=== PATIENT | female | born 1965 | race Caucasian/White ===

== ENCOUNTER 2016-12-07 13:10 | Emergency (ER) | payer BC, OTHER ==
[2016-12-07 13:13] VITALS: BP 143/73; BMI 28.3
[2016-12-07] MEDS ORDERED: ZOFRAN INJ 4 MG VIAL IVP ONE (13:22)
[2016-12-07] MEDS ORDERED: TORADOL 30 MG VIAL IVP ONE (13:22)
[2016-12-07] MEDS ORDERED: NS 1000 ML 1,000 ML IV ONE (13:23)
--- NOTE | 2016-12-07 13:24 | DR.GENAD ---
HPI - PCP Primary Care Physician: ABI - Complaint/Symptoms Chief Complaint:: PT. C/O POSSIBLE KIDNEY STONE, RIGHT FLANK PAIN. - Source History Provided: Patient - Mode of Arrival Mode of Arrival: Ambulatory - Timing Onset of Chief Complaint: 12/07/16 PMH - PMH Past Medical History: Yes Past Medical History: Anxiety, Hypertension, Kidney Stones Past Surgical History: Yes Surgical History: Cholecystectomy, Hysterectomy - Family History History of Family Medical Conditions: Yes Family Medical History: Diabetes Mellitus, Cancer, [place], Coronary Artery Disease, Heart Failure, Hypertension Family Medical History Comment: KIDNEY STONES - Social History Does patient currently use any type of tobacco product: No Have you used tobacco products in the last 12 months: No Type of Tobacco Use: None Does any household member use tobacco: No Alcohol Use: None Do you use any recreational Drugs:: No Lives With: Spouse Lives Where: Home - infectious screening In the last 2 months have you had wt loss of >10#?: NO Have you had fever, night sweats or hemotysis?: No Have you traveled outside the country in the last 6 months?: No Isolation: Standard PE - Vital Signs Vitals: Temperature 98.3 F Pulse Rate 86 Respiratory Rate 17 Blood Pressure 143/73 O2 Sat by Pulse Oximetry 96 ROR - Labs Reviewed Result Diagrams: 12/07/16 13:33 12/07/16 13:33 Laboratory: WBC 6.6 X10^3/uL (3.6-10.0) 12/07/16 13:33 RBC 4.24 X10^6/uL (3.5-5.4) 12/07/16 13:33 Hgb 13.0 g/dL (12.0-16.0) 12/07/16 13:33 Hct 37.9 % (36.0-47.0) 12/07/16 13:33 MCV 89.3 fL (80.0-100.0) 12/07/16 13:33 MCH 30.8 pg (27.0-34.0) 12/07/16 13:33 MCHC 34.4 g/dL (33.0-35.0) 12/07/16 13:33 RDW 12.7 % (11.6-16.5) 12/07/16 13:33 Plt Count 311 X10^3/uL (150.0-450.0) 12/07/16 13:33 MPV 7.9 fL (7.4-11.0) 12/07/16 13:33 Neut % 50.0 % (42.0-75.0) 12/07/16 13:33 Lymph % 36.4 % (21.0-51.0) 12/07/16 13:33 [place] % 11.0 % (0.0-13.0) 12/07/16 13:33 Eos % 1.4 % (0.9-2.9) 12/07/16 13:33 Baso % 1.2 % (0.2-1.0) H 12/07/16 13:33 Neut # 3.3 x10^3/uL (2.2-4.8) 12/07/16 13:33 Lymph # 2.4 X10^3/uL (1.3-2.9) 12/07/16 13:33 [place] # 0.7 x10^3/uL (0.3-0.8) 12/07/16 13:33 Eos # 0.1 x10^3/uL (0.0-0.2) 12/07/16 13:33 Baso # 0.1 X10^3/uL (0.0-0.1) 12/07/16 13:33 Absolute Nucleated RBC 0.0 /100WBC 12/07/16 13:33 Sodium 141 mmol/L (136-145) 12/07/16 13:33 Corrected Sodium TNP 12/07/16 13:33 Potassium 3.5 mmol/L (3.5-5.1) 12/07/16 13:33 Chloride 105 mmol/L (98-107) 12/07/16 13:33 Carbon Dioxide 27.6 mmol/L (21-32) 12/07/16 13:33 BUN 14 mg/dL (7-18) 12/07/16 13:33 Creatinine 0.80 mg/dL (0.55-1.02) 12/07/16 13:33 Est GFR (MDRD) Af Amer > 60 (>60) 12/07/16 13:33 Est GFR (MDRD) Non-Af > 60 (>60) 12/07/16 13:33 Glucose 100 mg/dL (65-99) H 12/07/16 13:33 Calcium 8.9 mg/dL (8.5-10.1) 12/07/16 13:33 Corrected Calcium TNP 12/07/16 13:33 Total Bilirubin 0.30 mg/dL (0.2-1.0) 12/07/16 13:33 AST 23 Units/L (15-37) 12/07/16 13:33 ALT 34 Units/L (12-78) 12/07/16 13:33 Alkaline Phosphatase 58 Units/L (46-116) 12/07/16 13:33 Total Protein 7.4 g/dL (6.4-8.2) 12/07/16 13:33 Albumin 3.9 g/dL (3.4-5.0) 12/07/16 13:33 Globulin 3.5 g/dL (2.5-4.5) 12/07/16 13:33 Albumin/Globulin Ratio 1.1 Ratio (1.1-2.1) 12/07/16 13:33 Specimen Type Clean catch urine 12/07/16 13:33 Urine Color Yellow (YELLOW) 12/07/16 13:33 Urine Appearance Hazy (CLEAR) 12/07/16 13:33 Urine pH 7.0 (5.0 - 8.0) 12/07/16 13:33 Ur Specific [place] 1.010 (1.000-1.030) 12/07/16 13:33 Urine Protein Negative (NEGATIVE) 12/07/16 13:33 Urine Glucose (UA) Negative (NEGATIVE) 12/07/16 13:33 Urine Ketones Negative (NEGATIVE) 12/07/16 13:33 Urine Occult Blood 1+ (NEGATIVE) 12/07/16 13:33 Urine Nitrite Negative (NEGATIVE) 12/07/16 13:33 Urine Bilirubin Negative (NEGATIVE) 12/07/16 13:33 Urine Urobilinogen Normal (NORMAL) 12/07/16 13:33 Ur Leukocyte Esterase Negative (NEGATIVE) 12/07/16 13:33 Urine RBC 3-5 /HPF (NEGATIVE) 12/07/16 13:33 Urine WBC 0-2 /HPF (NEGATIVE) 12/07/16 13:33 Ur Squamous Epith Cells Rare /HPF (NEGATIVE) 12/07/16 13:33 Urine Bacteria Trace /HPF (NEGATIVE) 12/07/16 13:33 Ur Culture Indicated? No/not indicated 12/07/16 13:33 - Diagnosis Discharge Problem: Kidney stone, Right flank pain - Discharge Plan Condition: Stable Prescriptions: Hydrocodone-Acet 5 mg/325 mg [[place] 5/325 mg Tab] 1 tab PO Q6H PRN #20 tab PRN Reason: Pain Ketorolac Tromethamine [Toradol Tab] 10 mg PO Q8H PRN #20 tab PRN Reason: Pain - Follow ups/Referrals Follow ups/Referrals: Chas Baum [Primary Care Provider] - 12/08/16 - Instructions Instructions: Flank Pain, [id number], Kidney Stones, [id number] Additional Instructions: RETURN TO ED IF WORSE.
[2016-12-07] MEDS ORDERED: NS 1000 ML 1,000 ML ONE (13:31)
[2016-12-07] MEDS ORDERED: ZOFRAN INJ 4 MG VIAL ONE (13:31)
[2016-12-07] MEDS ORDERED: TORADOL 30 MG VIAL ONE (13:31)
[2016-12-07 13:47] LABS: BILIRUBIN,URINE NEGATIVE (NEGATIVE); BLOOD/HEMOGLOBIN,URINE 1+ (NEGATIVE); GLUCOSE, URINE NEGATIVE (NEGATIVE); KETONES,URINE NEGATIVE (NEGATIVE); LEUKOCYTE ESTERASE ,URINE NEGATIVE (NEGATIVE); NITRITES,URINE NEGATIVE (NEGATIVE); PROTEIN,URINE NEGATIVE (NEGATIVE); UROBILINOGEN,URINE NORMAL (NORMAL)
[2016-12-07 13:49] LABS: BASOPHILS # (AUTO) 0.1 X10^3/uL (0.0-0.1); BASOPHILS % (AUTO) 1.2 % (0.2-1.0); EOSINOPHILS # (AUTO) 0.1 x10^3/uL (0.0-0.2); EOSINOPHILS % (AUTO) 1.4 % (0.9-2.9); HEMATOCRIT 37.9 % (36.0-47.0); LYMPHOCYTES # (AUTO) 2.4 X10^3/uL (1.3-2.9); LYMPHOCYTES % (AUTO) 36.4 % (21.0-51.0); MEAN CORPUSCULAR HEMOGLOBIN 30.8 pg (27.0-34.0); MEAN CORPUSCULAR HGB CONC 34.4 g/dL (33.0-35.0); MEAN CORPUSCULAR VOLUME 89.3 fL (80.0-100.0); MEAN PLATELET VOLUME 7.9 fL (7.4-11.0); MONOCYTES # (AUTO) 0.7 x10^3/uL (0.3-0.8); NEUTROPHILS # (AUTO) 3.3 x10^3/uL (2.2-4.8); PLATELET COUNT 311 X10^3/uL (150.0-450.0); RED BLOOD COUNT 4.24 X10^6/uL (3.5-5.4); RED CELL DISTRIBUTION WIDTH 12.7 % (11.6-16.5); WHITE BLOOD COUNT 6.6 X10^3/uL (3.6-10.0)
[2016-12-07 13:55] LABS: APPEARANCE,URINE HAZY (CLEAR); BACTERIA,URINE TRACE /HPF (NEGATIVE); COLOR,URINE YELLOW (YELLOW); SQUAMOUS EPITHELIAL CELL,UR RARE /HPF (NEGATIVE)
--- NOTE | 2016-12-07 14:00 | CT ---
HISTORY: Right flank pain Study: CT abdomen pelvis without contrast Comparison: None Technique: Axial non contrast images with coronal and sagittal reformats. Dose reduction procedures were used with MA/kv adjusted for body size. Findings: There is a 3.2 millimeter left lower lobe pulmonary nodule best visualized on series 3, image 15. Fo llow up CT examination in 1 year is recommended for further evaluation. The liver, spleen, adrenal g lands, and pancreas are within normal limits to the limitations of an unenhanced examination. The pa tient is status post cholecystectomy. The kidneys are unobstructed. There is a 1 millimeter nonobstr ucting right lower pole renal calculus and a 1 millimeter nonobstructing right upper pole renal calc ulus. No right ureteral calculi are identified. Multiple tiny nonobstructing left renal calculi are present. No left ureteral calculus is identified. The appendix is normal. No enlarged intraperitonea l or retroperitoneal lymphadenopathy is identified. There are no findings suggestive of diverticulit is or colitis. Examination of the pelvis demonstrated no evidence for pelvic masses, pelvic fluid, o r pelvic lymphadenopathy. No bladder abnormality is identified. No significant skeletal abnormality is identified. IMPRESSION: No evidence for obstructing ureteral calculi. Bilateral tiny multiple nonobstructing renal calculi. Normal appendix 3.2 millimeter left lower lobe pulmonary nodule requiring 1 year follow up to assess for stability Reported By:
[2016-12-07 14:06] LABS: ALANINE AMINOTRANSFERASE 34 Units/L (12-78); ALBUMIN 3.9 g/dL (3.4-5.0); ALKALINE PHOSPHATASE 58 Units/L (46-116); ASPARTATE AMINO TRANSFERASE 23 Units/L (15-37); BLOOD UREA NITROGEN 14 mg/dL (7-18); CALCIUM 8.9 mg/dL (8.5-10.1); CARBON DIOXIDE 27.6 mmol/L (21-32); CHLORIDE 105 mmol/L (98-107); GLUCOSE 100 mg/dL (65-99); SODIUM 141 mmol/L (136-145); TOTAL PROTEIN 7.4 g/dL (6.4-8.2); eGFR BLACK RACES > 60 (>60); eGFR NON BLACK RACES > 60 (>60)
== END 2016-12-07 15:13 | disposition home or self-care (01) ==
LOC: ER 13:17
DX: N20.0 Calculus of kidney (principal); R10.84 Generalized abdominal pain
CPT/HCPCS: 36415; 74176; 80053; 81001; 85025; 96365; 96374; 96375; 99283; A4222; J1885; J2405

== ENCOUNTER → 2017-03-17 | Outpatient (CLI) | payer BC, OTHER ==
[2017-03-18 09:38] LABS: HEMOGLOBIN A1C 5.6 % (4.5-6.2)
[2017-03-18 10:02] LABS: ALANINE AMINOTRANSFERASE 26 Units/L (12-78); ALBUMIN 3.6 g/dL (3.4-5.0); ALKALINE PHOSPHATASE 71 Units/L (46-116); ASPARTATE AMINO TRANSFERASE 20 Units/L (15-37); BLOOD UREA NITROGEN 8 mg/dL (7-18); CARBON DIOXIDE 31.8 mmol/L (21-32); CHLORIDE 104 mmol/L (98-107); CHOL/HDL RATIO 3.9 (0.0-5.0); CHOLESTEROL 223 mg/dL (0-200); FREE T4 (FREE THYROXINE) 0.74 ng/dL (0.76-1.46); HDL CHOLESTEROL 57 mg/dL (40-60); SODIUM 141 mmol/L (136-145); TOTAL PROTEIN 7.6 g/dL (6.4-8.2); TRIGLYCERIDES 163 mg/dL (0-150); TSH (3RD GENERATION) < 0.007 uIU/mL (0.358-3.74); eGFR BLACK RACES > 60 (>60); eGFR NON BLACK RACES > 60 (>60)
== END | disposition home or self-care (01) | DRG 948 ==
LOC: LAB 13:45
PROVIDERS: ATTEND Internal Medicine
DX: R60.0 Localized edema (principal); I10 Essential (primary) hypertension; E03.8 Other specified hypothyroidism; M25.512 Pain in left shoulder; G43.809 Other migraine, not intractable, without status migrainosus; E66.8 Other obesity; L40.8 Other psoriasis; Z78.0 Asymptomatic menopausal state; E78.2 Mixed hyperlipidemia
CPT/HCPCS: 36415; 80053; 80061; 82670; 83001; 83036; 84270; 84402; 84403; 84439; 84443; 84481; 86376